=== PATIENT | male | born 1960 | race Caucasian/White ===

== ENCOUNTER 2016-07-15 00:07 | Emergency (ER) | payer BC ==
[2016-07-15] MEDS ORDERED: METOPROLOL SUCC 50 MG TABLET PO ONE (00:19)
[2016-07-15 00:33] LABS: EOS % 3.9 % (0-6); GRAN % 49.9 % (47-80); HEMATOCRIT 45.9 % (42.0-52.0); HEMOGLOBIN 15.4 gm/dl (14.0-18.0); LYMPH % 36.2 % (16-45); MEAN CORPUSCULAR HEMOGLOBIN 29.8 pg (27-33); MEAN CORPUSCULAR HGB CONC 33.6 g/dl (32-36); MEAN PLATELET VOLUME 9.4 fl (7.4-10.4); PLATELET COUNT 284 K/uL (130-400); RED BLOOD COUNT 5.16 M/uL (4.40-5.70); RED CELL DISTRIBUTION WIDTH 12.7 % (11.5-14.5); WHITE BLOOD COUNT W/O DIFF 9.6 K/uL (4.2-12.2)
[2016-07-15 00:43] LABS: ANION GAP 7.8 (7-16); BLOOD UREA NITROGEN 15 mg/dL (9-20); CARBON DIOXIDE 30.2 mmol/L (22-30); CREATININE 1.2 mg/dL (0.66-1.25); EST GLOMERULAR FILTRATION RATE > 60 ml/min; GLUCOSE,RANDOM 94 mg/dL (70-110)
[2016-07-15 00:58] LABS: TROPONIN I < 0.012 ng/mL (0.00-0.034)
[2016-07-15 01:14] LABS: THYROID STIMULATING HORMONE 3.98 uIU/ml (0.465-4.68)
--- NOTE | 2016-07-15 01:29 | Emergency Department Record ---
History of Present Illness - General Chief Complaint: Rapid heartbeat Stated Complaint: PALPITATIONS Time Seen by Provider: 07/15/16 00:14 Source: Patient Mode of Arrival: Ambulatory Limitations: No limitations - History of Present Illness Initial Comments: pt ran out of his toprol xl a few days ago and pharmacy was not open for holiday. an hour fishing boat [employer] pt woke up with palpitations. he has not had this happen before. he has no chest pain MD Complaint: "Heart racing", Palpitations Onset/Timin -: Hour(s) Context: Awoke with symptoms Associated Symptoms: Denies other symptoms - Related Data Home Medications Medication Instructions Recorded Confirmed Last Taken Bupropion HCl [Bupropion Xl] 300 mg PO DAILY 06/04/14 07/15/16 06/04/14 Levothyroxine Sodium 75 mcg PO DAILY 06/04/14 07/15/16 06/04/14 Metoprolol Succinate 50 mg PO DAILY 06/04/14 07/15/16 06/04/14 Allopurinol [Allopurinol] 300 mg PO DAILY 07/15/16 07/15/16 Unknown Atorvastatin Calcium [Lipitor] 40 mg PO DAILY 07/15/16 07/15/16 Unknown Allergies Allergy/AdvReac Type Severity Reaction Status Date / Time No Known Drug Allergies Allergy Verified 06/04/14 13:34 Travel Screening - Travel/Exposure Within Last 30 Days Have you traveled within the last 30 days?: No - Travel/Exposure Within Last Year Have you traveled outside the [place] in the last year?: No - Additonal Travel Details Have you been exposed to anyone with a communicable illness?: No - Travel Symptoms Symptom Screening: None Review of Systems Reviewed: No additional complaints except as noted below Constitutional: Reports: As per HPI. Denies: Chills, Fever, Malaise, Night sweats, Weakness, Weight change Eyes: Reports: As per HPI. Denies: Eye discharge, Eye pain, Photophobia, Vision change ENT: Reports: As per HPI. Denies: Congestion, Dental pain, Ear pain, Epistaxis , Hearing loss, Throat pain Respiratory: Reports: As per HPI. Denies: Cough, Dyspnea, Hemoptysis, Stridor, Wheezes Cardiovascular: Reports: As per HPI. Denies: Arrhythmia, Chest pain, Dyspnea on exertion, Edema, Murmurs, Orthopnea, Palpitations, Paroxysmal nocturnal dyspnea, Rheumatic Fever, Syncope Endocrine: Reports: As per HPI. Denies: Fatigue, Heat or cold intolerance, Polydipsia, Polyuria Gastrointestinal: Reports: As per HPI. Denies: Abdominal pain, Constipation, Diarrhea, Hematemesis, Hematochezia, Melena, Nausea, Vomiting Genitourinary: Reports: As per HPI. Denies: Dysuria, Frequency, Hematuria, Incontinence, Retention, Testicular pain, Testicular mass, Urgency Musculoskeletal: Reports: As per HPI. Denies: Arthralgia, Back pain, Gout, Joint swelling, Myalgia, Neck pain Skin: Reports: As per HPI. Denies: Bruising, Change in color, Change in hair/ nails, Lesions, Pruritus, Rash Neurological: Reports: As per HPI. Denies: Abnormal gait, Confusion, Headache, Numbness, Paresthesias, Seizure, Tingling, Tremors, Vertigo, Weakness Psychiatric: Reports: As per HPI. Denies: Anxiety, Auditory hallucinations, Depression, Homicidal thoughts, Suicidal thoughts, Visual hallucinations Hematological/Lymphatic: Reports: As per HPI. Denies: Anemia, Blood Clots, Easy bleeding, Easy bruising, Swollen glands Past Medical History - SOCIAL HISTORY Smoking Status: Never smoker Alcohol Use: Occassional Alcohol Use Comment: weekends Drug Use: Heavy Drug Use Detail:: Marijuana - RESPIRATORY Hx Respiratory Disorders: No - CARDIOVASCULAR Hx Cardio Disorders: Yes Hx Hypertension: Yes Comment:: high cholesterol - NEURO Hx Neuro Disorders: No - GI Hx GI Disorders: No - Hx Genitourinary Disorders: No - ENDOCRINE Hx Endocrine Disorders: Yes Hx Thyroid Disease: Yes (hypothyroid) - MUSCULOSKELETAL Hx Musculoskeletal Disorders: No - PSYCH Hx Psych Problems: Yes Hx Depression: Yes - HEMATOLOGY/ONCOLOGY Hx Hematology/Oncology Disorders: No Family Medical History Any Significant Family History?: No Hx Heart Disease: Father Physical Exam - General General Appearance: Alert, Oriented x3, Cooperative, Mild distress - Head Head exam: Normal inspection - Eye Eye exam: Normal appearance, PERRL, EOMI Pupils: Normal accommodation - ENT ENT exam: Normal exam, Mucous membranes moist, Normal external ear exam, Normal orophraynx, TM's normal bilaterally Ear exam: Normal external inspection. negative: External canal tenderness Nasal Exam: Normal inspection. negative: Discharge, Sinus tenderness Mouth exam: Normal external inspection, Tongue normal Teeth exam: Normal inspection. negative: Dental caries Throat exam: Normal inspection. negative: Tonsillar erythema, Tonsillar exudate - Neck Neck exam: Normal inspection, Full ROM. negative: Tenderness - Respiratory Respiratory exam: Normal lung sounds bilaterally. negative: Respiratory distress - Cardiovascular Cardiovascular Exam: Normal heart sounds, Irregular rhythm, Tachycardia - GI/Abdominal GI/Abdominal exam: Soft, Normal bowel sounds. negative: Tenderness - Rectal Rectal exam: Deferred - exam: Deferred - Extremities Extremities exam: Normal inspection, Full ROM, Normal capillary refill. negative: Tenderness - Back Back exam: Reports: Normal inspection, Full ROM. Denies: Muscle spasm, Rash noted, Tenderness - Neurological Neurological exam: Alert, CN II-XII intact, Normal gait, Oriented X3 - Psychiatric Psychiatric exam: Normal affect, Normal mood - Skin Skin exam: Dry, Intact, Normal color, Warm Course Vital Signs 07/15/16 07/15/16 00:14 01:19 Temperature 98.2 F Pulse Rate 98 H Pulse Rate [ 89 Pulse Ox Probe] Respiratory 18 18 Rate Blood Pressure 197/139 Blood Pressure 169/104 [Left Arm] Pulse Ox 100 96 - Reevaluation(s) Reevaluation #1: 07/15/16 01:27 pts initial ekg show afib w rvr. several minutes later he spontaneously converted to nsr w a rate of 93. pt feels much better 07/15/16 01:29 Reevaluation #2: 07/15/16 01:40 pt feels better Medical Decision Making - Management Options MDM Management: Additional Work-up Planned (e.g. ADM/Transfer/OP Study) - Data Complexity MDM Data: Labs Ordered and/or Reviewed, X-Ray Ordered and/or Reviewed, EKG Ordered and/or Reviewed - Lab Data Result diagrams: 07/15/16 00:10 07/15/16 00:10 Lab Results 07/15/16 07/15/16 Range/Units 00:10 00:10 WBC 9.6 (4.2-12.2) K/uL RBC 5.16 (4.40-5.70) M/uL Hgb 15.4 (14.0-18.0) gm/dl Hct 45.9 (42.0-52.0) % MCV 89.0 (81-97) fl MCH 29.8 (27-33) pg MCHC 33.6 (32-36) g/dl RDW 12.7 (11.5-14.5) % Plt Count 284 (130-400) K/uL MPV 9.4 (7.4-10.4) fl Gran % 49.9 (47-80) % Lymphocytes % 36.2 (16-45) % Monocytes % 9.0 (0-9) % Eosinophils % 3.9 (0-6) % Basophils % 1.0 (0-6) % Sodium 140 (136-145) mmol/L Potassium 3.7 (3.5-5.1) mmol/L Chloride 102 (98-107) mmol/L Carbon Dioxide 30.2 H (22-30) mmol/L Anion Gap 7.8 (7-16) BUN 15 (9-20) mg/dL Creatinine 1.2 (0.66-1.25) mg/dL Estimated GFR > 60 ml/min Random Glucose 94 (70-110) mg/dL Calcium 9.5 (8.5-10.1) mg/dL Troponin I < 0.012 (0.00-0.034) ng/mL TSH 3.98 (0.465-4.68) uIU/ml - EKG Data -: EKG Interpreted by Fl EKG: Abnormal EKG (afib w rvr. 2nd ekg showed nsr) Disposition Disposition: Discharge Clinical Impression: Paroxysmal a-fib Medication reaction Qualifiers: Encounter type: initial encounter Qualified Code(s): T88.7XXA - Unspecified adverse effect of drug or medicament, initial encounter Disposition: Home, Self-Care Condition: (1) Good Instructions: A-fib (Atrial Fibrillation) (ED) Additional Instructions: follow up with family doctor. return sooner if worse. donot miss doses of toprol, Forms: Patient Portal Access
== END 2016-07-15 02:18 | disposition home or self-care (01) ==
LOC: ER 00:07
DX: I48.0 Paroxysmal atrial fibrillation (principal); T44.7X6A Underdosing of beta-adrenoreceptor antagonists, initial encounter; I10 Essential (primary) hypertension; Z91.138 Patient's unintentional underdosing of medication regimen for other reason
CPT/HCPCS: 80048; 84443; 84484; 85025; 93005; 93010; 99284